=== PATIENT | male | born 1950 | race African-American/Black ===

== ENCOUNTER 2019-07-20 08:23 | Emergency (ER) | payer MEDICARE ==
[2019-07-20 08:34] VITALS: BP 156/100
--- NOTE | 2019-07-20 09:35 | ER Document Report ---
HPI - HPI Patient complains to provider of: left ear cerumen impaction Time Seen by Provider: 07/20/19 09:19 Pain Level: Denies Context: Well-appearing 69-year-old male presents the emergency department with chief complaint of earwax impaction in on the left side. Patient is states that he has reduced hearing as a result. Denies any dizziness, lightheadedness, vertigo, ear pain, sore throat, fevers or chills, any other symptoms. Patient states this is happened in the past and it would require clearance with a speculum. Past Medical History - Social History Smoking Status: Unknown if Ever Smoked Family History: None Vertical Provider Document - CONSTITUTIONAL Notes: PHYSICAL EXAMINATION: Reviewed vital signs and charting by RN GENERAL: Alert, interacts well. No acute distress. HEAD: Normocephalic, atraumatic. EYES: Pupils equal and round. Extraocular movements intact. ENT: Large amount of cerumen at the beginning of the external ear canal easily cleared with a small speculum, no impaction of cerumen seen in the remainder of the canal, left TM pearly acosta landmarks well visualized not bulging or erythematous. Oral mucosa moist, tongue midline. NECK: Full range of motion. Trachea midline. EXTREMITIES: Moves all 4 extremities spontaneously. No edema, No cyanosis. PSYCH: Normal affect, normal mood. SKIN: Warm, dry, normal turgor. No rashes or lesions noted. Course - Re-evaluation Re-evalutation: 07/20/19 09:56 Large amount of wax just at the end of the external your canal easily cleared with a small curuette. I offered patient carbamide peroxide but he declined drops stating that they typically do not work. Patient was very satisfied with result and is stable for discharge. - Vital Signs Vital signs: Temp Pulse Resp BP Pulse Ox 97.8 F 88 16 156/100 H 98 07/20/19 08:32 07/20/19 08:32 07/20/19 08:32 07/20/19 08:32 07/20/19 08:32 Discharge - Discharge Clinical Impression: Cerumen impaction Qualifiers: Laterality: left Qualified Code(s): H61.22 - Impacted cerumen, left ear Condition: Good Disposition: HOME, SELF-CARE Additional Instructions: You were seen in the emergency department for earwax impaction in your left ear. Were able to remove it with a small speculum and I am very glad that you report relief. You can use a little bit of hydrogen peroxide if this happens again and keep it in your ear with a cottonball. You could also use a little bit of mineral oil to help break down the wax in your ear if it builds up again. Please return to the emergency department if you have severe wax impaction, hearing loss, severe headache, or any other concerning symptoms.
== END 2019-07-20 09:30 | disposition home or self-care (01) ==
LOC: ER 08:23
DX: H61.22 Impacted cerumen, left ear (principal)
CPT/HCPCS: 99282